=== PATIENT | male | born 1985 | race Two or more races ===

== ENCOUNTER 2023-03-06 13:25 | Emergency (ER) | payer MEDICAID, OTHER ==
[~2023-03-06] VITALS: Ht 185.4 cm; Wt 109.5 kg
[2023-03-06 19:21] LABS: Basophils # (auto) 0 10 ^3/uL (0-0.2); Basophils % (auto) 0.6 % (0.0-2.0); Eosinophils # (auto) 0.6 10 ^3/uL (0-0.8); Eosinophils % (auto) 7.1 % (0.0-7.0); Hemoglobin 16.9 g/dL (13.5-17.5); Lymphocytes # (auto) 1.8 10 ^3/uL (0.4-5.4); Lymphocytes % (auto) 22.6 % (10.0-50.0); Mean Corpuscular Hemoglobin 30.7 pg (28.0-32.0); Mean Corpuscular Hgb Conc. 33.7 g/dL (32.0-36.0); Mean Corpuscular Volume 90.9 fL (80.0-100.0); Monocytes # (auto) 0.5 10 ^3/uL (0-1.3); Monocytes % (auto) 6.8 % (0.0-12.0); Neutrophils % (auto) 62.9 % (37.0-80.0); Nucleated Red Blood Cells % 0.1 %; Red Cell Distribution Width 12.9 % (11.8-14.3)
[2023-03-06 19:47] LABS: Alanine Aminotransferase 41 U/L (7-40); Alkaline Phosphatase 80 U/L (46-116); Anion Gap 6 (5-15); Aspartate Aminotransferase 19 U/L (13-40); BUN/Creatinine Ratio 8.2 (10.0-20.0); Blood Urea Nitrogen 8 mg/dL (9-23); Calcium 9.7 mg/dL (8.7-10.4); Carbon Dioxide 26 mmol/L (20-30); Chloride 106 mmol/L (98-107); Glucose 81 mg/dL (74-106); Potassium 4.2 mmol/L (3.5-5.1); Sodium 138 mmol/L (136-145)
[2023-03-06 19:48] LABS: Albumin 5.1 g/dL (3.2-4.8); Bilirubin, Total 0.8 mg/dL (0.2-1.0); Total Protein 8.4 g/dL (5.7-8.2)
[2023-03-06] MEDS ORDERED: IBUP-1455 PO (21:17)
[2023-03-06 22:00] VITALS: BP 118/79; PULSE 72; RESP 16; TEMP 98; O2SAT 98
== END 2023-03-06 22:50 | disposition home or self-care (01) ==
LOC: ER 13:25
DX: M79.605 Pain in left leg (principal); M79.604 Pain in right leg; R10.9 Unspecified abdominal pain
CPT/HCPCS: 36415; 74176; 80053; 82962; 83605; 85025